=== PATIENT | female | born 1975 | race Caucasian/White ===

== ENCOUNTER 2022-01-30 08:04 | Day surgery (SDC) | payer BC ==
[~2022-01-30 08:04] MED LIST: Lactated Ringers 1,000 ML IV SCH
[2022-01-30] MEDS ORDERED: Propofol 200 MG/20 ML SDV ONE ×2 (09:42→10:00)
[2022-01-30] MEDS ORDERED: fentaNYL 100 MCG/2 ML SDV ONE (09:42)
[2022-01-30] MEDS ORDERED: Iopamidol 612 MG/ML 100 ML Bottle IVPUSH ONE (11:54)
== END 2022-01-30 14:24 | disposition home or self-care (01) ==
LOC: VM.SDS 08:04
PROVIDERS: ATTEND Student in an Organized Health Care Education/Training Program
DX: K56.699 Other intestinal obstruction unspecified as to partial versus complete obstruction (principal); F32.A Depression, unspecified; Z91.09 Other allergy status, other than to drugs and biological substances; Z87.891 Personal history of nicotine dependence
CPT/HCPCS: 00811; 36415; 71260; 74177; 82378; 82565; J2704; J3010; J7120; Q9967